=== PATIENT | male | born 1985 | race Caucasian/White ===

== ENCOUNTER → 2024-12-04 | Outpatient (CLI) | payer BC ==
--- NOTE | 2024-12-05 07:34 | US ---
EXAMINATION TYPE: US extremity nonvasc mass LT DATE OF EXAM: 12/04/2024 COMPARISON: NONE CLINICAL INDICATION: Male, 39 years old with history of [id number] MASS LOWER L ARM; Left posterior forear m palpable lump x couple of months, denies injury, denies redness, and minimal pain TECHNIQUE: Left forearm FINDINGS: Subcutaneous heterogeneous area at pt's palpable posterior left forearm= 4.6 x 0.8 x 3.2 c m, no internal vascularity visualized, minimal peripheral flow visualized. IMPRESSION: Ill-defined subcutaneous heterogenous tissue possibly representing fat in the area of con cern. Veins could represent lipoma. Consider MRI with palpable marker placement for further evaluatio n with IV contrast. [facility], , 12/05/2024 7:32 AM
== END | disposition home or self-care (01) ==
LOC: RADUSWWP 15:42
PROVIDERS: ATTEND Family Medicine
DX: R22.31 Localized swelling, mass and lump, right upper limb (principal)